=== PATIENT | male | born 1995 ===

== ENCOUNTER 2016-12-17 12:30 | Emergency (ER) | payer SELFPAY ==
[2016-12-17] MEDS ORDERED: Ibuprofen TAB* 600 MG PO ONE (13:41)
--- NOTE | 2016-12-17 14:09 | UC ---
Lower Extremity/Ankle HPI - HPI Summary HPI Summary: While playing soccer 2 days ago pt injured R ankle. Uncertain of what direction foot/ankle went, just felt sudden pain. Has been able to limp on it, but prefers crutches since the event. No prior injury or surgery. - History of Current Complaint Hx Obtained From: Patient Onset/Duration: Sudden Onset Severity Initially: Moderate Severity Currently: Mild Alleviating Factor(s): Rest, Elevation Able to Bear Weight: Yes <Michelle Covarrubias - Last Filed: 12/17/16 14:02> <Laina Guerrier - Last Filed: 12/17/16 16:57> - History of Current Complaint Chief Complaint: UCLowerExtremity Stated Complaint: ANKLE INJURY Time Seen by Provider: 12/17/16 13:27 - Allergies/Home Medications Allergies/Adverse Reactions: Allergies Allergy/AdvReac Type Severity Reaction Status Date / Time No Known Allergies Allergy Verified 12/17/16 13:42 Home Medications: Home Medications Tylenol 2 tab PO PRN 12/17/16 [History] PMH/Surg Hx/FS Hx/Imm Hx Previously Healthy: Yes - Surgical History Surgical History: None - Family History Known Family History: Negative: Blood Disorder - Social History Occupation: Student Lives: Alone Alcohol Use: Rare Substance Use Type: Marijuana Smoking Status (MU): Never Smoked Tobacco - Immunization History Most Recent Influenza Vaccination: 11/15 <Michelle Covarrubias - Last Filed: 12/17/16 14:02> Review of Systems Constitutional: Negative Skin: Negative Eyes: Negative ENT: Negative Respiratory: Negative Cardiovascular: Negative Gastrointestinal: Negative Genitourinary: Negative Motor: Negative Neurovascular: Negative Musculoskeletal: Arthralgia, Decreased ROM Neurological: Negative Psychological: Negative Is Patient Immunocompromised?: No All Other Systems Reviewed And Are Negative: Yes <Michelle Covarrubias - Last Filed: 12/17/16 14:02> Physical Exam Triage Information Reviewed: Yes Appearance: Well-Appearing, No Pain Distress, Well-Nourished Vital Signs: Initial Vital Signs Temp 98.4 F 12/17/16 13:35 Pulse 58 12/17/16 13:35 Resp 18 12/17/16 13:35 BP 114/58 12/17/16 13:35 Pulse Ox 100 12/17/16 13:35 Vital Signs Reviewed: Yes Eye Exam: Normal, Other - PERRL Eyes: Positive: Conjunctiva Clear ENT Exam: Normal ENT: Positive: Normal ENT inspection, Hearing grossly normal, Pharynx normal, TMs normal Dental Exam: Normal Neck exam: Normal Neck: Positive: Supple, Nontender, No Lymphadenopathy Respiratory Exam: Normal Respiratory: Positive: Chest non-tender, Lungs clear, Normal breath sounds, No respiratory distress, No accessory muscle use Cardiovascular Exam: Normal Cardiovascular: Positive: RRR, No Murmur Musculoskeletal Exam: Other - swelling in R ankle, pain over lateral and medial ligament insertions Musculoskeletal: Positive: ROM Intact Neurological Exam: Normal Neurological: Positive: Alert Psychological Exam: Normal Skin Exam: Normal <Michelle Covarrubias - Last Filed: 12/17/16 14:02> Vital Signs: Initial Vital Signs Temp 98.4 F 12/17/16 13:35 Pulse 58 12/17/16 13:35 Resp 18 12/17/16 13:35 BP 114/58 12/17/16 13:35 Pulse Ox 100 12/17/16 13:35 <Laina Guerrier - Last Filed: 12/17/16 16:57> Lower Extremity Course/Dx - Differential Dx/Diagnosis Provider Diagnoses: R ankle sprain <Michelle Covarrubias - Last Filed: 12/17/16 14:02> Discharge <Michelle Covarrubias - Last Filed: 12/17/16 14:02> <Laina Guerrier - Last Filed: 12/17/16 16:57> - Discharge Plan Condition: Stable Disposition: HOME Patient Education Materials: Ankle Sprain (ED) Additional Instructions: You can use your crutches until you can walk comfortably. Use the splint (or tape your ankle) until you are basically pain-free. Most ankle sprains will resolve in weeks to months with time and rest. Try not to reinjure the ankle in the mean time. Attestation Statement User Type: Provider - I was available for consult. This patient was seen by the PIETRO. The patient was not presented to, seen by, or examined by me. -Heather <Laina Guerrier - Last Filed: 12/17/16 16:57>
--- NOTE | 2016-12-17 14:13 | RAD ---
Indication: Right ankle pain. 3 views of the right ankle demonstrate soft tissue swelling laterally. Ankle mortise is intact. No fracture is noted. IMPRESSION: Soft tissue swelling. No fracture is identified.
== END 2016-12-17 14:37 | disposition home or self-care (01) ==
LOC: UCEAST 12:30
DX: S93.401A Sprain of unspecified ligament of right ankle, initial encounter (principal); X58.XXXA Exposure to other specified factors, initial encounter; Y93.66 Activity, soccer; Y92.322 Soccer field as the place of occurrence of the external cause; F12.90 Cannabis use, unspecified, uncomplicated
CPT/HCPCS: 99202; A9270-GY; G0463